=== PATIENT | male | born 1950 | race Caucasian/White ===

== ENCOUNTER → 2017-08-09 | Outpatient (CLI) | payer MEDICARE, OTHER ==
[2014-01-19 10:56] VITALS: BMI 26.6
[~2017-08-09] MED LIST: AMLO-101 PO; AMLO-99 PO; AZI250 PO; BENA40TA52 PO; CALC-1231 PO; CEPH500C24 PO; ENFORGE; FINA5TAB67 PO; GLY25 PO; HYDR-3078 PO; HYDR-385 PO; INSU100I30 SQ; LANI SC; LANI SUBQ; LOPE1LIQ49 PO; LOR5/325 PO; LOSA100T67 PO; LOSA25TA50 PO; MET500 PO; METF-409 PO; METF-420 PO; METF500T4 PO; METXR500 PO; MULT1TAB54 PO; OMEP-218 PO; OMEP40CA45 PO; PIOG45TA18 PO; PNEU0.5D3 IM; PRAV20TA65 PO; PRAV20TA66 PO; PRAV40TA77 PO
[2017-08-09 10:05] LABS: PLATELET COUNT, AUTOMATED 285 K/uL (150-450)
[2017-08-09 10:29] LABS: LDL CHOLESTEROL 89 mg/dl
== END ==
LOC: LAB 09:19
PROVIDERS: ATTEND Internal Medicine
DX: N40.0 Benign prostatic hyperplasia without lower urinary tract symptoms (principal); I10 Essential (primary) hypertension; E11.9 Type 2 diabetes mellitus without complications; E78.5 Hyperlipidemia, unspecified
CPT/HCPCS: 36415; 81001; 82040; 82043; 82247; 82310; 82374; 82435; 82465; 82565; 82947; 83036; 83718; 84075; 84132; 84155; 84295; 84443; 84450; 84460; 84478; 84520; 85025

== ENCOUNTER 2018-05-16 18:40 | Emergency (ER) | payer MEDICARE, OTHER ==
[2014-01-19 10:56] VITALS: Wt 63.5 kg
[~2018-05-16 18:40] MED LIST changes: +AMLO-113 PO; -AMLO-99 PO; -LOSA100T67 PO; +LOSA100T69 PO; -LOSA25TA50 PO; +LOSA25TA52 PO
--- NOTE | 2018-05-16 18:43 | ER Report ---
History and Physical Time Seen By MD: 18:42 HPI/ROS CHIEF COMPLAINT: Left sciatica HISTORY OF PRESENT ILLNESS: 67-year-old male presents ambulatory to the ER complaining of severe left sciatica pain 02/28. Patient's been unable to sleep the last 4 nights. He injured his back cleaning out a stall. Patient reports she's had sciatica before. Patient states he went to a chiropractor yesterday without improvement of his symptoms. Patient notes no incontinence. Patient notes no alleviating or exacerbating factors. Patient thinks on his last occurrence of sciatica. He got a Medrol Dosepak and a muscle relaxant. He is reluctant to take pain pills. He has a giselle in his leg and took Percocet quite liberally. He thinks will not be of much help. REVIEW OF SYSTEMS: Respiratory: No cough, no dyspnea. Cardiovascular: No chest pain, no palpitations. Gastrointestinal: No vomiting, no abdominal pain. Musculoskeletal: As above Allergies: Coded Allergies: fenofibrate (Verified Allergy, Unknown, 05/16/18) simvastatin (Verified Allergy, Unknown, 05/16/18) Uncoded Allergies: hayfever (Allergy, Intermediate, UNKNOWN, 01/01/12) Home Meds Active Scripts Tizanidine Hcl (TIZANIDINE HCL) 4 Mg Capsule, 1-2 CAP PO TID PRN for muscle spasm relief, #20 CAPSULE Prov:BELEM CLARK DO 05/16/18 Methylprednisolone (METHYLPREDNISOLONE) 4 Mg Tab.ds.pk, 4 MG PO DIRECTED for reduce nerve inflammation, #1 TAB Prov:BELEM CLARK DO 05/16/18 Insulin Glargine 100 Un/Ml Pen (LANTUS SOLOSTAR PEN) 100 Unit/1 Ml Insuln.pen, 32 UNIT SQ QDAY, #1 BOX 6 Refills Prov:LILA LI MD 07/01/17 Metformin Hcl (METFORMIN HCL ER) 500 Mg Tab.er.24, 1 TAB PO BID, #180 TAB 4 Refills Prov:LILA LI MD 07/01/17 Finasteride (FINASTERIDE) 5 Mg Tablet, 1 TAB PO QDAY, #90 TAB 4 Refills Prov:LILA LI MD 04/22/17 Reported Medications Omeprazole Magnesium (PRILOSEC OTC) 20 Mg Tablet.dr, 1 TAB PO QDAY, TAB 118 Multivitamin (MULTI-VITAMIN DAILY) 1 Each Tablet, 1 EACH PO QDAY 08/09/17 Amlodipine Besylate (NORVASC) 5 Mg Tablet, 1 TAB PO QDAY, TAB 02/04/17 Losartan Potassium (LOSARTAN POTASSIUM) 100 Mg Tablet, 0.5 TAB PO QDAY 02/04/17 Reviewed Nurses Notes: Yes Old Medical Records Reviewed: Yes Hx Smoking: No Smoking Status: Never Smoker Exposure to Second Hand Smoke?: No Hx Substance Use Disorder: No Hx Alcohol Use: Yes Constitutional Vital Sign - Last 24 Hours 05/16/18 18:48 Temp 98.2 Pulse 85 Resp 16 B/P (MAP) 143/96 Pulse Ox 97 O2 Delivery Room Air Physical Exam General Appearance: The patient is alert, has no immediate need for airway protection and no current signs of toxicity. Vital signs stable, afebrile, pulse ox normal Eyes: Pupils equal and round no injection. Respiratory: Chest is non tender, lungs are clear to auscultation. Cardiac: regular rate and rhythm Gastrointestinal: Abdomen is soft and non tender, no masses, bowel sounds normal. Musculoskeletal: Neck: Neck is supple and non tender. Back: There is no tenderness or lumbar spine region. There is no tenderness to the SI joints. There is significant tenderness to the left SI course of the nerve. There is increased pain with straight leg raise and plantarflexion with the foot. Negative straight leg raise on the right Extremities have full range of motion and are non tender. Skin: No rashes or lesions. DIFFERENTIAL DIAGNOSIS: After history and physical exam differential diagnosis was considered for back pain including but not limited to muscular pain, herniated disc, spine fracture, sciatica, intra-abdominal causes and urinary tract infection. Medical Decision Making ED Course/Re-evaluation ED Course Patient admitted to an examination room. H&P was done. The differential diagnoses was considered. On clinical examination. Patient has a nonfocal neurologic examination. He has findings consistent with left sciatica. Patient's been suffering for 4 days. He'll be treated with a Medrol Dosepak, and tizanidine. He's advised to continue ibuprofen. Patient advised to follow- up with primary care if unimproved in 3-5 days. He may require some physical therapy or couldn't need an MRI of his back to diagnosis problem. Decision to Disposition Date: May 16, 2018 Decision to Disposition Time: 18:50 Depart Departure Latest Vital Signs Vital Signs Date Time Temp Pulse Resp B/P (MAP) Pulse Ox O2 Delivery O2 Flow Rate FiO2 05/16/18 18:48 98.2 85 16 143/96 97 Room Air Impression: Primary Impression: Left sided sciatica Additional Impression: Type II diabetes mellitus Condition: Improved Disposition: HOME OR SELF-CARE Referrals: SAM CEBALLOS MD (PCP) LINDSEY BLANCO MD New Scripts Tizanidine Hcl (TIZANIDINE HCL) 4 Mg Capsule 1-2 CAP PO TID PRN for muscle spasm relief, #20 CAPSULE Prov: BELEM CLARK DO 05/16/18 Methylprednisolone (METHYLPREDNISOLONE) 4 Mg Tab.ds.pk 4 MG PO DIRECTED for reduce nerve inflammation, #1 TAB Prov: BELEM CLARK DO 05/16/18 Patient Instructions: Sciatica (ED) Additional Instructions: Take all medications with food Follow-up with Dr. Blanco if unimproved in 3-5 days for referral to PT or MRI of her lumbar spine Problem Qualifiers Additional Impression: Type II diabetes mellitus Diabetes mellitus intermodal customer service insulin use: with fpc use Diabetes mellitus complication status: without complication Qualified Codes: E11.9 - Type 2 diabetes mellitus without complications; Z79.4 - intermission coordinator (current) use of insulin BELEM CLARK DO May 16, 2018 18:43
[2018-05-16 18:48] VITALS: BP 143/96
[2018-05-16] MEDS ORDERED: TIZA4CAP3 PO (18:53)
[2018-05-16] MEDS ORDERED: METH4TAB66 PO (18:53)
== END 2018-05-16 19:04 | disposition home or self-care (01) ==
LOC: ER 18:45
DX: M54.32 Sciatica, left side (principal); E11.9 Type 2 diabetes mellitus without complications; Z79.4 Long term (current) use of insulin
CPT/HCPCS: 99281

== ENCOUNTER 2018-06-21 11:43 | Emergency (ER) | payer MEDICARE, OTHER ==
[2014-01-19 10:56] VITALS: Wt 72.6 kg
--- NOTE | 2018-06-21 11:40 | ER Report ---
History and Physical Time Seen By MD: 11:41 HPI/ROS 67-year-old male with a history of sciatica. He has been treated for sciatica for the past month. He was originally on NSAIDs, muscle relaxers, and steroid taper. The pain improved but lingered. Today he was loading wood into his woodstove when he had an acute exacerbation of his chronic sciatica. It is left- sided. It is not midline. No changes in bowel or bladder. The pain is just above the midline of his left buttocks and radiates down his left leg. No fever chills. He denies ever having midline back pain during this episode. He does report hardware in his left team or secondary to a femur fracture years ago. He said at that time he was told after the injury that his legs were 2 different lengths, and at one point even more a lift on his shoe. Remainder of the 14 system rev: Yes Allergies: Coded Allergies: fenofibrate (Verified Allergy, Unknown, 05/16/18) simvastatin (Verified Allergy, Unknown, 05/16/18) Uncoded Allergies: hayfever (Allergy, Intermediate, UNKNOWN, 01/01/12) Home Meds Active Scripts Insulin Glargine 100 Un/Ml Pen (LANTUS SOLOSTAR PEN) 100 Unit/1 Ml Insuln.pen, 32 UNIT SQ QDAY, #1 BOX 6 Refills Prov:LILA LI MD 07/01/17 Metformin Hcl (METFORMIN HCL ER) 500 Mg Tab.er.24, 1 TAB PO BID, #180 TAB 4 Refills Prov:LILA LI MD 07/01/17 Reported Medications Losartan Potassium (LOSARTAN POTASSIUM) 25 Mg Tablet, 25 MG PO QDAY 06/21/18 Omeprazole Magnesium (PRILOSEC OTC) 20 Mg Tablet.dr, 1 TAB PO QDAY, TAB 08/09/17 Multivitamin (MULTI-VITAMIN DAILY) 1 Each Tablet, 1 EACH PO QDAY 08/09/17 Amlodipine Besylate (NORVASC) 5 Mg Tablet, 1 TAB PO QDAY, TAB 02/04/17 Losartan Potassium (LOSARTAN POTASSIUM) 100 Mg Tablet, 0.5 TAB PO QDAY 02/04/17 Discontinued Scripts Tizanidine Hcl (TIZANIDINE HCL) 4 Mg Capsule, 1-2 CAP PO TID PRN for muscle spasm relief, #20 CAPSULE Prov:BELEM CLARK DO 05/16/18 Methylprednisolone (METHYLPREDNISOLONE) 4 Mg Tab.ds.pk, 4 MG PO DIRECTED for reduce nerve inflammation, #1 TAB Prov:BELEM CLARK DO 05/16/18 Finasteride (FINASTERIDE) 5 Mg Tablet, 1 TAB PO QDAY, #90 TAB 4 Refills Prov:LILA LI MD 04/22/17 Reviewed Nurses Notes: Yes Old Medical Records Reviewed: Yes Hx Smoking: No Smoking Status: Never Smoker Exposure to Second Hand Smoke?: No Hx Substance Use Disorder: No Hx Alcohol Use: Yes Constitutional Vital Sign - Last 24 Hours 06/21/18 11:45 Temp 98.2 Pulse 90 Resp 16 B/P (MAP) 132/66 Pulse Ox 93 O2 Delivery Room Air Physical Exam General Appearance: The patient is alert, has no immediate need for airway protection and no current signs of toxicity. Eyes: Pupils equal and round no injection. Respiratory: Chest is non tender, lungs are clear to auscultation. Cardiac: regular rate and rhythm Gastrointestinal: Abdomen is soft and non tender, no masses, bowel sounds normal. Musculoskeletal: No midline spinal TTP. TTP at the mid iliac crest region on the left back. Trigger point reproduces symptoms Neck: Neck is supple and non tender. Extremities have full range of motion and are non tender. DIFFERENTIAL DIAGNOSIS: After history and physical exam differential diagnosis was considered for spinal cord emergency, cauda equina, sciatica, muscle spasm secondary to sciatica Medical Decision Making ED Course/Re-evaluation ED Course I do not think this patient needs any imaging of his spine emergently given his lack of trauma, lack of midline pain or tenderness to palpation, and a normal ne uro exam. His history and physical are consistent with left-sided sciatica. I think the cause of this is likely from the the hardware in his left femur causing disproportion between his right and left legs. I gave him Toradol and decadron. I also administered a trigger point injection with lidocaine and bupivicaine. He had relief of his acute pain after the injection, and now has m ore mobility. I counseled him to follow up with his primary care physician and also consider massage therapy. Decision to Disposition Date: Jun 21, 2018 Decision to Disposition Time: 13:43 Depart Departure Latest Vital Signs Vital Signs Date Time Temp Pulse Resp B/P (MAP) Pulse Ox O2 Delivery O2 Flow Rate FiO2 06/21/18 11:45 98.2 90 16 132/66 93 Room Air Impression: Primary Impression: Left sided sciatica Condition: Improved Disposition: HOME OR SELF-CARE Referrals: SAM CEBALLOS MD (PCP) Patient Instructions: Sciatica (ED) Additional Instructions: The massage therapist I recommend is Madie Regalado: Call [phone] MERVAT FERNANDES MD Jun 21, 2018 11:40
[~2018-06-21 11:43] MED LIST changes: -LOSA100T69 PO; +LOSA100T75 PO; -LOSA25TA52 PO; +LOSA25TA57 PO
[2018-06-21] MEDS ORDERED: LOSA25TA57 PO (12:03)
[2018-06-21] MEDS ORDERED: KETOROLAC 30 MG/ML VIAL IVP ONE (12:40)
[2018-06-21] MEDS ORDERED: DEXAMETHASONE SOD PHOS 10MG/ML IVP ONE (12:40)
[2018-06-21 13:30] VITALS: BP 106/64
== END 2018-06-21 14:01 | disposition home or self-care (01) ==
LOC: ER 11:46
DX: M54.32 Sciatica, left side (principal)
CPT/HCPCS: 96374; 96375; 99284; J1100; J1885

== ENCOUNTER → 2018-06-21 | Outpatient (CLI) | payer MEDICARE, OTHER ==
[2014-01-19 10:56] VITALS: BMI 26.6
[~2018-06-21] MED LIST changes: +METH4TAB66 PO; +TIZA4CAP3 PO
== END ==
LOC: AMB 11:13
PROVIDERS: ATTEND Nurse Practitioner
DX: M54.5 Low back pain (principal); M79.605 Pain in left leg
CPT/HCPCS: A0425; A0427

== ENCOUNTER → 2018-06-24 | Outpatient (CLI) | payer MEDICARE, OTHER ==
[2014-01-19 10:56] VITALS: BMI 26.6
[~2018-06-24] MED LIST changes: +LOSA100T69 PO; -LOSA100T75 PO; +LOSA25TA52 PO; -LOSA25TA57 PO
--- NOTE | 2018-06-24 09:14 | RADIOLOGY IMAGING REPORT ---
[place] [facility] [place] NAME: Mario Marie : 1950 MR: [id number] V: [id number] EXAM DATE: ORDERING PHYSICIAN: LINDSEY BLANCO TECHNOLOGIST: Location: [facility] - [place], [place] Patient: Mario Marie : 1950 Visit/Account:[id number] Date of Sevice: 06/24/2018 Exam type: ORBITS FOREIGN BODY 1 VIEW History: Pre-MRI screening Comparison: None. Findings: No radiopaque metallic foreign bodies project over the orbits IMPRESSION: 1. No radiopaque metallic foreign bodies project over the orbits Report Dictated By: Patrica Fall MD at 06/24/2018 9:08 AM Report E-Signed By: Patrica Fall MD at 06/24/2018 9:09 AM WSN:[email or web address]
--- NOTE | 2018-06-24 11:55 | RADIOLOGY IMAGING REPORT ---
FACILITY: PATIENT NAME: Mario Marie : 1950 MR: [id number] V: [id number] EXAM DATE: ORDERING PHYSICIAN: LINDSEY BLANCO TECHNOLOGIST: Location: [facility] Patient: Mario Marie : 1950 Visit/Account:[id number] Date of Sevice: 06/24/2018 EXAMINATION: L SPINE W/O CONTRAST INDICATION: Fall from horse, low back pain COMPARISON: None available TECHNIQUE: Multiplane MR imaging was performed through the lumbar spine without contrast. FINDINGS: Vertebral bodies and posterior elements: Normal vertebral body heights. Transitional lumbosacral sammie omar. The lowest disc space will be described as L5-S1. Conus position/signal: Normal Marrow signal: Benign hemangioma within the T12 vertebral body. Minimal degenerative edema surrounds the T12-L1 and L1-2 disc spaces. Benign small round high signal focus within the T11 vertebral body. Extraspinal structures including psoas muscles/paraspinal soft tissues: Normal L1-2: Mild bilateral foraminal narrowing, otherwise normal. L2-3: Mild disc space degeneration, small posterior disc protrusion, mild bilateral lateral recess na rrowing, moderate to severe proximal left foraminal narrowing and moderate right foraminal narrowing. L3-4: Small posterior disc protrusion, ligamentum flavum thickening, mild bilateral lateral recess na rrowing and mild canal narrowing. Moderate to severe left and severe right foraminal narrowing. Mild facet arthropathy. L4-5: Slight anterolisthesis of L4 on L5, small disc protrusion, moderate facet arthropathy, ligament um flavum thickening, moderate bilateral lateral recess narrowing and mild canal narrowing. Moderate to severe left and moderate right foraminal narrowing. L5-S1: No disc protrusion or canal narrowing. Normal foramen. IMPRESSION: 1. No apparent acute finding. 2. Multilevel lateral recess narrowing secondary to the constellation of degenerative findings descri bed above most pronounced at the L4-5 level, see level by level comments above. 3. Mild L3-4 and L4-5 canal narrowing secondary to the constellation of findings described above. 4. Multilevel foraminal narrowing, see level by level comments above. 5. Slight anterolisthesis of L4 on L5 secondary to moderate facet arthropathy. Report Dictated By: Delmer Soler MD at 06/24/2018 11:44 AM Report E-Signed By: Delmer Soler MD at 06/24/2018 11:49 AM WSN:[email or web address]
== END ==
LOC: MRI 07:06
PROVIDERS: ATTEND Family Medicine
DX: M47.896 Other spondylosis, lumbar region (principal)
CPT/HCPCS: 70030; 72148

== ENCOUNTER 2018-12-01 09:45 | Outpatient (RCR) | payer MEDICARE, OTHER ==
[2014-01-19 10:56] VITALS: BMI 26.6
--- NOTE | 2018-09-04 19:30 | PT INITIAL EVALUATION ---
MEDICAL DIAGNOSIS: Left leg weakness, s/p L4-5 laminectomy TREATMENT DIAGNOSIS: same DATE OF ONSET: 07/25/18 SUBJECTIVE: Mario Marie presents to physical therapy status post L4/5 laminectomy that occurred on the July. Prior to the surgical intervention, he reports that he could not function well and his L LE just completely shut down. He reports that the pain in his low back region along with radiating pain that completely shut down his L LE occurred in April 2018.He reports that following the surgical intervention he is doing much better but continues to have residual L LE strength difficulties. Furthermore, he reports that he continues to have low back pain with radiating pain down his L LE to his knee (anterior, lateral) and rates it to be 3-4/10, which he states that this level of pain is much more manageable than prior to surgery. 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 Pain location is L 4-5 central with radiating pain down his L LE to his knee and described as achy, sore. Pain scale is 4 on a ten point pain scale. REHAB PROBLEM LIST: Increased Pain Decreased ROM Decreased Strength Decreased Endurance Decreased Balance Decreased Function Decreased ADL's Decreased Mobility Decreased Gait PREVIOUS MEDICAL HISTORY: See EMR OCCUPATION: Retired but helps with ranching duties OBJECTIVE: Incision healing well no signs or symptoms of infection Posture: He demonstrates minimal forward head, increased thoracic kyphosis, and decreased lumbar lordosis. ROM: Trunk AROM: flexion: moderate restriction, extension: minimal restriction, minimal restriction with R side gliding, and NIL with L side gliding: however, he had increased pain or empty end feels in all directions. Strength: L hip flexion, abduction, extension, L knee extension and flexion, L ankle PF and DF: 4/5. R hip flexion, abduction, extension, R knee extension and flexion, R ankle PF and DF: 5/5. He did not demonstrate pain with any of his strength tests. Palpation: TTP: L4-5 spinous process Sensation: L2-S2 intact Special Tests: Repeated extension: no response during or following. Repeated flexion: no response during or following. Repeated R/L sidegliding: no response during or following Mobility: Independent Gait: He demonstrated normal gait mechanics except from increased lumbar lordosis during gait/ ASSESSMENT: Mario will benefit from skilled physical therapy addressing the listed impairments to improve function and return to prior level of function. Short Term Goals 6 weeks: Pt will demonstrate equal R LE and L LE strength to at least 4+/5 or greater to improve function and QOL. 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 6 weeks: Pt will be independent with home exercise program. Patient's Goals gain more strength PLAN: Patient to be seen for Manual Therapy/STM/MET Strengthening/condition Ice/Heat Range of Motion Spinal Stabilization Work Hardening/Cond Stretching Iontophoresis Neuromuscular Re-ed Closed Chain Program Electrical Stim Posture/Body mechanics Gait Trg/Balance Trg Home Exercise Program Therapeutic Activities 2x/Week for 6 Weeks If you have any questions, comments, or concerns about this report or plan, please contact me at . Thank you, Dontrell Chatman, PT, DPT DU
--- NOTE | 2018-10-09 17:59 | PT PLAN OF CARE ---
Physician: Amando Mora MD Patient is being seen: 2x/week Therapist: Dontrell Chatman, PT, DPT Medical Diagnosis: Left leg weakness, s/p L4-5 laminectomy Treatment Diagnosis: same Date of Onset: 07/25/18 Date of Initial Evaluation: 09/03/18 Date patient was last seen: 10/09/18 Number of treatments: 10 Number of cancellations/No shows: 0 INTERVENTIONS: Manual Therapy/STM/MET Strengthening/condition Ice/Heat Range of Motion Spinal Stabilization Work Hardening/Cond Stretching Iontophoresis Neuromuscular Re-ed Closed Chain Program Electrical Stim Posture/Body mechanics Gait Trg/Balance Trg Home Exercise Program Therapeutic Activities GOALS: 6 weeks: Pt will demonstrate equal R LE and L LE strength to at least 4+/5 or greater to improve function and QOL. 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 6 weeks: Pt will be independent with home exercise program. PATIENT'S GOAL: gain more strength Status of Patient's Goals: Progressing well Patient Compliance: Good Prognosis: Good Reasons for continuing therapy: This is a progress note for Mario Marie. He reports that he is doing well. He denies any pain in his low back region or in his B hips. He denies any radiating pain. He reports that he continues to have B foot pain that is impacting his life more than the back. He reports that he has restless leg syndrome that becomes worse at night and feels like that is stirring up his foot pain, which makes it difficult for him to sleep at night. He demonstrates significant improvements in his core and B LE strength; however, he continues to have his B foot tendinopathy that continues to be painful with isometrics and we have not been able to progress to concentric or anything with resistance. Furthermore, he has demonstrated significant improvements in gait mechanics, endurance, and B LE strength and we will continue to decreased B foot pain and return to prior level of function. Posture: He demonstrates minimal forward head, increased thoracic kyphosis, and decreased lumbar lordosis. ROM: Trunk AROM: flexion: NIL restriction, extension: NIL restriction, NIL restriction with R side gliding, and NIL with L side gliding Strength: L hip flexion, abduction, extension, L knee extension and flexion, L ankle PF and DF: 4+/5. R hip flexion, abduction, extension, R knee extension and flexion, R ankle PF and DF: 5/5. He did not demonstrate pain with any of his strength tests. Mobility: Independent If you have any questions, please contact me at [phone]. Thank you, Physician Signature Date MTDD
[~2018-12-01 09:45] MED LIST changes: -AMLO-113 PO; +AMLO-127 PO; -LOSA100T69 PO; +LOSA100T75 PO; -LOSA25TA52 PO; +LOSA25TA57 PO
== END 2018-12-02 ==
LOC: PT 09:45
PROVIDERS: ATTEND Family Medicine
DX: M54.5 Low back pain (principal); M62.81 Muscle weakness (generalized); Z98.890 Other specified postprocedural states
CPT/HCPCS: 97162

== ENCOUNTER 2018-12-09 09:00 | Outpatient (RCR) | payer MEDICARE, OTHER ==
[2014-01-19 10:56] VITALS: BMI 26.6
--- NOTE | 2018-12-04 09:33 | PT PLAN OF CARE ---
Physician: Amando Mora MD Patient is being seen: 2x/week Therapist: Dontrell Chatman, PT, DPT Medical Diagnosis: Left leg weakness, s/p L4-5 laminectomy Treatment Diagnosis: same Date of Onset: 07/25/18 Date of Initial Evaluation: 09/03/18 Date patient was last seen: 12/04/18 Number of treatments: 21 Number of cancellations/No shows: 2 INTERVENTIONS: Manual Therapy/STM/MET Strengthening/condition Ice/Heat Range of Motion Spinal Stabilization Work Hardening/Cond Stretching Iontophoresis Neuromuscular Re-ed Closed Chain Program Electrical Stim Posture/Body mechanics Gait Trg/Balance Trg Home Exercise Program Therapeutic Activities GOALS: 6 weeks: Pt will demonstrate equal R LE and L LE strength to at least 4+/5 or greater to improve function and QOL. 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 6 weeks: Pt will be independent with home exercise program. PATIENT'S GOAL: gain more strength Status of Patient's Goals: Progressing well Patient Compliance: Good Prognosis: Good Reasons for continuing therapy: This is a progress note for Mario Marie. He reports that he cleaned out the barn and did not feel any pain is his back during but the next day he felt increased low back pain with radiating pain down his L LE to his ankle/foot. He reports that walking is difficulty along with sitting. He continues to demonstrate directional preference with extension combined with left later motion that decreases the radiating pain and increased his trunk AROM and reduced his antalgic gait. He is independent with his specific exercise. We will continue to reduce to return to prior level of function. Posture: He demonstrates minimal forward head, increased thoracic kyphosis, and decreased lumbar lordosis. ROM: Trunk AROM: flexion: NIL restriction, extension: NIL restriction, NIL restriction with R side gliding, and NIL with L side gliding Strength: L hip flexion, abduction, extension, L knee extension and flexion, L ankle PF and DF: 4+/5. R hip flexion, abduction, extension, R knee extension and flexion, R ankle PF and DF: 5/5. He did not demonstrate pain with any of his strength tests. Mobility: Independent Physician Signature Date If you have any questions, please contact me at [phone]. Thank you, Dontrell Chatman, PT, DPT MARTIND
--- NOTE | 2018-12-09 12:46 | PT PLAN OF CARE ---
Physician: Amando Mora MD Patient is being seen: 2x/week Therapist: Dontrell Chatman, PT,DPT Medical Diagnosis: Left leg weakness, s/p L4-5 laminectomy Treatment Diagnosis: same Date of Onset: 07/25/18 Date of Initial Evaluation: 09/03/18 Date patient was last seen: 12/09/18 Number of treatments: 22 Number of cancellations/No shows: 0 INTERVENTIONS: Manual Therapy/STM/MET Strengthening/condition Ice/Heat Range of Motion Spinal Stabilization Work Hardening/Cond Stretching Iontophoresis Neuromuscular Re-ed Closed Chain Program Electrical Stim Posture/Body mechanics Gait Trg/Balance Trg Home Exercise Program Therapeutic Activities GOALS: 6 weeks: Pt will demonstrate equal R LE and L LE strength to at least 4+/5 or greater to improve function and QOL. 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 6 weeks: Pt will be independent with home exercise program. PATIENT'S GOAL: gain more strength Status of Patient's Goals: Progressed with strength but not with pain Patient Compliance: Good Prognosis: Good Reasons for continuing therapy: This is a discharge note for Mario Marie. He reports that his low back pain along with his radiating pain continues to be unchanged with no matter what exercise that he perform. He reports that the thigh will get so tight and grab him so bad that he cannot even stand or walk. He did not demonstrate any directional preference; therefore, he is in the category of other and is not benefiting from physical therapy being performed on his low back or his foot. As a result, we will refer his back to his neurosurgeon for a follow up. As a result, he will be discharged from PT to [facility]. Posture: He demonstrates minimal forward head, increased thoracic kyphosis, and decreased lumbar lordosis. ROM: Trunk AROM: flexion: moderate restriction, extension: minimal restriction, minimal restriction with R side gliding, and NIL with L side gliding: however, he had increased pain or empty end feels in all directions. Strength: L hip flexion, abduction, extension, L knee extension and flexion, L ankle PF and DF: 4+/5. R hip flexion, abduction, extension, R knee extension and flexion, R ankle PF and DF: 5/5. He did not demonstrate pain with any of his strength tests. Palpation: TTP: L4-5 spinous process with radiating pain down his L LE. Special Tests: Repeated extension: no response during or following. Repeated flexion: no response during or following. Repeated R/L sidegliding: no response during or following Mobility: Independent If you have any questions, please contact me at [phone]. Thank you, Dontrell Chatman, PT, DPT [facility]
== END 2018-12-09 18:00 | disposition home or self-care (01) ==
LOC: PT 09:00
PROVIDERS: ATTEND Family Medicine
DX: M54.5 Low back pain (principal); M62.81 Muscle weakness (generalized); Z98.890 Other specified postprocedural states